=== PATIENT | male | born 1950 | race Caucasian/White ===

== ENCOUNTER 2018-03-13 19:52 | Emergency (ER) | payer MEDICARE, MEDICAID ==
[~2018-03-13] VITALS: Ht 182.9 cm; Wt 84.1 kg
[~2018-03-13 19:52] MED LIST: ASPI-611 PO; ATE50T PO; BACL20TA84 PO; FAMO-128 PO; FURO40TA4 PO; GABA600T PO; HYT1T PO; MULT-1085 PO; NORCO10T PO; PYRI50TA10 PO; TOP100T PO; VARE0.5T PO
[2018-03-13] MEDS ORDERED: DULO-31 PO (20:02)
[2018-03-13] MEDS ORDERED: HYDR25TA4 PO (20:02)
[2018-03-13] MEDS ORDERED: CLON-529 PO (20:13)
[2018-03-13] MEDS ORDERED: ketorolac trometh. 30mg/ml inj. IM ONE (20:25)
[2018-03-13] MEDS ORDERED: IBUP-1985 PO (20:50)
[2018-03-13 21:11] VITALS: BP 143/61
== END 2018-03-13 21:11 | disposition home or self-care (01) ==
LOC: ER 19:53
DX: R07.89 Other chest pain (principal); I25.10 Atherosclerotic heart disease of native coronary artery without angina pectoris; I10 Essential (primary) hypertension; I25.2 Old myocardial infarction; J44.9 Chronic obstructive pulmonary disease, unspecified; E11.9 Type 2 diabetes mellitus without complications; G89.29 Other chronic pain; Z86.19 Personal history of other infectious and parasitic diseases; Z98.61 Coronary angioplasty status; Z60.2 Problems related to living alone; Z56.0 Unemployment, unspecified; Z79.82 Long term (current) use of aspirin; Z79.899 Other long term (current) drug therapy
CPT/HCPCS: 71046; 93005; 96372; 99284; J1885

== ENCOUNTER → 2018-08-10 | Emergency (ER) | payer MEDICARE, MEDICAID ==
[~2018-08-10] VITALS: Ht 175.3 cm; Wt 75.0 kg
[~2018-08-10] MED LIST changes: +CLON-529 PO; +DULO-31 PO; -FAMO-128 PO; -FURO40TA4 PO; +HYDR-4383 PO; +HYDR25TA4 PO; +IBUP-1984 PO; +IBUP-1985 PO; +ketorolac tromethamine 15mg/ml inj. IM ONE
[2018-08-10 16:19] VITALS: BP 125/74
== END | disposition home or self-care (01) ==
LOC: ER 16:14
DX: S42.018A Nondisplaced fracture of sternal end of left clavicle, initial encounter for closed fracture (principal); S20.212A Contusion of left front wall of thorax, initial encounter; I25.10 Atherosclerotic heart disease of native coronary artery without angina pectoris; I10 Essential (primary) hypertension; I25.2 Old myocardial infarction; J44.9 Chronic obstructive pulmonary disease, unspecified; E11.9 Type 2 diabetes mellitus without complications; G89.29 Other chronic pain; Z98.61 Coronary angioplasty status; Z56.0 Unemployment, unspecified; Z99.81 Dependence on supplemental oxygen; F10.929 Alcohol use, unspecified with intoxication, unspecified; Y90.9 Presence of alcohol in blood, level not specified; W19.XXXA Unspecified fall, initial encounter; Y93.89 Activity, other specified; Y99.8 Other external cause status; Y92.039 Unspecified place in apartment as the place of occurrence of the external cause
CPT/HCPCS: 71046; 73000; 96372; 99284; J1885

== ENCOUNTER 2018-08-21 13:04 | Outpatient (CLI) | payer MEDICARE, MEDICAID ==
[2018-08-21 13:04] VITALS: BP 127/78
[~2018-08-21 13:04] MED LIST changes: -ketorolac tromethamine 15mg/ml inj. IM ONE
== END 2018-08-21 13:58 | disposition home or self-care (01) ==
LOC: ORTHO 13:04
PROVIDERS: ATTEND Nurse Practitioner Family
DX: S42.018A Nondisplaced fracture of sternal end of left clavicle, initial encounter for closed fracture (principal); F17.210 Nicotine dependence, cigarettes, uncomplicated; J44.9 Chronic obstructive pulmonary disease, unspecified; I10 Essential (primary) hypertension; I25.2 Old myocardial infarction; E11.9 Type 2 diabetes mellitus without complications; Z56.0 Unemployment, unspecified; Z72.89 Other problems related to lifestyle; Z60.2 Problems related to living alone; Z79.82 Long term (current) use of aspirin; W18.39XA Other fall on same level, initial encounter; Y93.89 Activity, other specified; Y92.89 Other specified places as the place of occurrence of the external cause; Y99.8 Other external cause status
CPT/HCPCS: 73000; 99213

== ENCOUNTER 2018-09-05 13:40 | Outpatient (CLI) | payer MEDICARE, MEDICAID ==
[2018-09-05 13:31] VITALS: BP 126/81
[~2018-09-05 13:40] MED LIST changes: -IBUP-1984 PO
== END 2018-09-05 14:20 | disposition home or self-care (01) ==
LOC: ORTHO 13:40
PROVIDERS: ATTEND Nurse Practitioner Family
DX: S42.012D Anterior displaced fracture of sternal end of left clavicle, subsequent encounter for fracture with routine healing (principal); I10 Essential (primary) hypertension; I25.2 Old myocardial infarction; J44.9 Chronic obstructive pulmonary disease, unspecified; E11.9 Type 2 diabetes mellitus without complications; F17.200 Nicotine dependence, unspecified, uncomplicated; I25.10 Atherosclerotic heart disease of native coronary artery without angina pectoris; X58.XXXD Exposure to other specified factors, subsequent encounter; Z87.898 Personal history of other specified conditions
CPT/HCPCS: 73000; G0463

== ENCOUNTER 2018-09-27 14:03 | Outpatient (CLI) | payer MEDICARE, MEDICAID ==
[2018-09-27 14:07] VITALS: BP 124/75
== END 2018-09-27 15:27 | disposition home or self-care (01) ==
LOC: ORTHO 14:03
PROVIDERS: ATTEND Nurse Practitioner Family
DX: S42.01 Fracture of sternal end of clavicle (principal); I10 Essential (primary) hypertension; I25.2 Old myocardial infarction; J44.9 Chronic obstructive pulmonary disease, unspecified; E11.9 Type 2 diabetes mellitus without complications; F17.200 Nicotine dependence, unspecified, uncomplicated; I25.10 Atherosclerotic heart disease of native coronary artery without angina pectoris; Z87.898 Personal history of other specified conditions; Z56.0 Unemployment, unspecified; X58.XXXD Exposure to other specified factors, subsequent encounter
CPT/HCPCS: 73000; 99213

== ENCOUNTER → 2018-10-06 | Outpatient (CLI) | payer MEDICARE, MEDICAID | END | disposition home or self-care (01) | LOC: 64 CT 14:54 | PROVIDERS: ATTEND Nurse Practitioner Family | DX: S42.012D Anterior displaced fracture of sternal end of left clavicle, subsequent encounter for fracture with routine healing (principal); J44.9 Chronic obstructive pulmonary disease, unspecified; I10 Essential (primary) hypertension; E11.9 Type 2 diabetes mellitus without complications; F17.200 Nicotine dependence, unspecified, uncomplicated; X58.XXXD Exposure to other specified factors, subsequent encounter | CPT/HCPCS: 73200 ==

== ENCOUNTER 2018-10-18 13:57 | Outpatient (CLI) | payer MEDICARE, MEDICAID ==
[2018-10-18 13:58] VITALS: BP 146/83
== END 2018-10-18 14:43 | disposition home or self-care (01) ==
LOC: ORTHO 13:57
PROVIDERS: ATTEND Nurse Practitioner Family
DX: S42.018 Nondisplaced fracture of sternal end of left clavicle (principal); I10 Essential (primary) hypertension; I25.2 Old myocardial infarction; I25.10 Atherosclerotic heart disease of native coronary artery without angina pectoris; E11.9 Type 2 diabetes mellitus without complications; F17.210 Nicotine dependence, cigarettes, uncomplicated; X58.XXXD Exposure to other specified factors, subsequent encounter; Z86.59 Personal history of other mental and behavioral disorders
CPT/HCPCS: 99212

== ENCOUNTER 2018-11-02 11:58 | Outpatient (CLI) | payer MEDICARE, MEDICAID ==
[2018-11-02 11:42] VITALS: BP 126/82
== END 2018-11-02 12:40 | disposition home or self-care (01) ==
LOC: ORTHO 11:58
PROVIDERS: ATTEND Nurse Practitioner Family
DX: S42.018D Nondisplaced fracture of sternal end of left clavicle, subsequent encounter for fracture with routine healing (principal); I10 Essential (primary) hypertension; I25.2 Old myocardial infarction; I25.10 Atherosclerotic heart disease of native coronary artery without angina pectoris; E11.9 Type 2 diabetes mellitus without complications; F17.210 Nicotine dependence, cigarettes, uncomplicated; Z60.2 Problems related to living alone; Z56.0 Unemployment, unspecified; X58.XXXD Exposure to other specified factors, subsequent encounter
CPT/HCPCS: 73000; 99213

== ENCOUNTER 2018-12-29 11:08 | Outpatient (CLI) | payer MEDICARE, MEDICAID ==
[~2018-12-29 11:08] MED LIST changes: -PYRI50TA10 PO; +PYRI50TA13 PO
== END 2018-12-29 23:59 | disposition home or self-care (01) ==
LOC: RAD 11:08
DX: R56.9 Unspecified convulsions (principal)
CPT/HCPCS: 95819